=== PATIENT | female | born 1990 | race Caucasian/White ===

== ENCOUNTER 2021-11-21 01:47 | Emergency (ER) | payer BC ==
[~2021-11-21] VITALS: Ht 177.8 cm; Wt 73.0 kg
--- NOTE | 2021-11-21 02:13 | NUR ---
Patient wlaked into ER c/o nose injury. 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
--- NOTE | 2021-11-21 02:30 | NUR ---
Dr. Castillo on bedside for MSE.
[2021-11-21] MEDS ORDERED: LIDOCAINE HCL 1% 20 ML VIAL ONE (02:39)
[2021-11-21] MEDS ORDERED: LIDOCAINE HCL 1% 20 ML VIAL IJ ONE (02:45)
[2021-11-21] MEDS ORDERED: LIDOCAINE 1%-EPI 1:100,000 20 ML VIAL IJ ONE (02:45)
[2021-11-21] MEDS ORDERED: LIDOCAINE 1%-EPI 1:100,000 20 ML VIAL ONE (02:47)
[2021-11-21] MEDS ORDERED: NEOMY/BACITRA/POLYMYXIN B OINT UD PACKET TP ONE ×2 (03:59→04:15)
--- NOTE | 2021-11-21 04:12 | NUR ---
Patient discharged to home in stable condition. Written and verbal after care instructions given. Patient verbalizes understanding of instructions. Stressed follow up or return to ER for worsening s/s. Patient ambulated fr the ER with steady gait. All belongings with patient.
[2021-11-21 04:13] VITALS: BP 124/77
== END 2021-11-21 04:13 | disposition home or self-care (01) ==
LOC: ER 02:13
DX: S01.21XA Laceration without foreign body of nose, initial encounter (principal); W26.8XXA Contact with other sharp object(s), not elsewhere classified, initial encounter; Y92.89 Other specified places as the place of occurrence of the external cause; J45.909 Unspecified asthma, uncomplicated; Z88.0 Allergy status to penicillin
CPT/HCPCS: 99282; J3490; A4663